=== PATIENT | female | born 1940 | race Caucasian/White ===

== ENCOUNTER 2022-11-18 10:07 | Emergency (ER) | payer MEDICARE, OTHER ==
[~2022-11-18] VITALS: Ht 162.6 cm; Wt 68.0 kg
[2022-11-18 10:12] VITALS: BP 178/86
[2022-11-18] MEDS ORDERED: ASPIRIN 81MG CHEW TAB PO ONE (10:30)
[2022-11-18] MEDS ORDERED: IPRATROPIUM/ALBUTEROL SULFATE 3 ML SOLUTION IH ONE (10:30)
[2022-11-18 10:35] LABS: BASOPHILS % (AUTO) 0.7 % (0.0-5.0); EOSINOPHILS % (AUTO) 0.4 % (0.0-8.0); HEMATOCRIT 44.3 % (36-48); LYMPHOCYTES % (AUTO) 11.9 % (21.0-51.0); MEAN CORPUSCULAR HEMOGLOBIN 28.2 pg (27.0-33.0); MEAN CORPUSCULAR HGB CONC 31.4 g/dL (32.0-36.0); MEAN CORPUSCULAR VOLUME 89.9 fL (79-99); MONOCYTES % (AUTO) 10.5 % (3.0-13.0); NEUTROPHILS % (AUTO) 76.3 % (40.0-77.0); PLATELET COUNT (AUTO) 203 K/uL (130-400); RED BLOOD CELL COUNT(AUTO) 4.93 MIL/uL (4.00-5.50); RED CELL DISTRIBUTION WIDTH 13.6 % (11.0-15.5); WHITE BLOOD COUNT (AUTO) 5.5 K/uL (4.8-10.8)
[2022-11-18] MEDS ORDERED: ACETAMINOPHEN 500 MG TABLET ONE (10:42)
[2022-11-18 10:51] LABS: CREATININE 0.8 mg/dL (0.5-1.5)
[2022-11-18 10:54] LABS: B-TYPE NATRIURETIC PEPTIDE 28 pg/mL (0-100)
[2022-11-18 10:55] LABS: ALBUMIN 4.1 g/dL (3.5-5.0); TOTAL PROTEIN, SERUM 8.2 g/dL (6.0-8.3)
[2022-11-18] MEDS ORDERED: SOLU-MEDROL 125MG VIAL IVP ONE (11:00)
[2022-11-18] MEDS ORDERED: ACETAMINOPHEN 500 MG TABLET PO SCH (11:00)
[2022-11-18] MEDS ORDERED: PRED50TA2 PO (13:27)
[2022-11-18] MEDS ORDERED: ALBUHFA IH (13:27)
[2022-11-18] MEDS ORDERED: BENZ-39 PO (13:27)
== END 2022-11-18 14:23 | disposition home or self-care (01) ==
LOC: EDH 10:07
DX: R06.02 Shortness of breath (principal); R09.81 Nasal congestion; J45.909 Unspecified asthma, uncomplicated; I10 Essential (primary) hypertension; Z20.822 Contact with and (suspected) exposure to COVID-19; Z98.890 Other specified postprocedural states
CPT/HCPCS: 99285; 84484; 80053; 83880; 85025; 87040 ×2; 87804 ×2; 83605; 36415; 87635; 71045; 96374; 93005; 94640; C9803; J2930